=== PATIENT | male | born 1945 | race Two or more races ===

== ENCOUNTER 2021-12-30 19:49 | Emergency (ER) | payer SELFPAY ==
[~2021-12-30] VITALS: Ht 165.1 cm; Wt 61.4 kg
[2021-12-30] MEDS ORDERED: cloNIDine HCL 0.1 MG TAB PO ONE (21:30)
[2021-12-30 22:17] LABS: Basophils # (auto) 0.1 10 ^3/uL (0-0.2); Basophils % (auto) 0.7 % (0.0-2.0); Eosinophils # (auto) 0.1 10 ^3/uL (0-0.8); Lymphocytes # (auto) 0.8 10 ^3/uL (0.4-5.4); Neutrophils # (auto) 6.7 10 ^3/uL (1.6-8.6)
[2021-12-30 22:24] LABS: Eosinophils % (auto) 1.5 % (0.0-7.0); Hematocrit 39.4 % (41.0-53.0); Hemoglobin 13.3 g/dL (13.5-17.5); Lymphocytes % (auto) 9.2 % (10.0-50.0); Mean Corpuscular Hemoglobin 31.2 pg (28.0-32.0); Mean Corpuscular Hgb Conc. 33.8 g/dL (32.0-36.0); Mean Corpuscular Volume 92.3 fL (80.0-100.0); Monocytes # (auto) 0.6 10 ^3/uL (0-1.3); Monocytes % (auto) 7.6 % (0.0-12.0); Red Blood Cells 4.27 10^6/uL (4.5-5.90); Red Cell Distribution Width 13.9 % (11.8-14.3); White Blood Cell 8.2 10^3/uL (4.4-10.8)
[2021-12-30 22:38] LABS: Albumin 3.8 g/dL (3.4-5.0); Calcium 9.1 mg/dL (8.5-10.1); Potassium 3.6 mmol/L (3.5-5.1)
[2021-12-30 22:53] LABS: Bilirubin, Total 0.5 mg/dL (0.2-1.0); CRP High Sensitivity 0.57 mg/dL (< 0.3); Total Protein 7.9 g/dL (6.4-8.2)
[2021-12-31] MEDS ORDERED: VALA1TAB PO (00:43)
[2021-12-31] MEDS ORDERED: CEPH-509 PO (00:43)
[2021-12-31 00:58] VITALS: BP 148/79
== END 2021-12-31 01:04 | disposition left against medical advice (07) ==
LOC: ER 19:49
DX: R29.810 Facial weakness (principal); I10 Essential (primary) hypertension; R21 Rash and other nonspecific skin eruption; R20.2 Paresthesia of skin; L03.211 Cellulitis of face; Z79.899 Other long term (current) drug therapy
CPT/HCPCS: 36415; 70450; 80053; 85025; 86141

== ENCOUNTER 2022-04-04 05:57 | Inpatient (IN) | payer MEDICAID ==
[~2022-04-04] VITALS: Ht 165.1 cm; Wt 61.3 kg
[2022-04-04] VITALS (10 sets, daily range): BP systolic 132–186; BP diastolic 77–100
[~2022-04-04 05:57] MED LIST: CEPH-509 PO; VALA1TAB PO
[2022-04-04] MEDS ORDERED: dilTIAZem 25 MG/5 ML VIAL IV ONE ×2 (06:15→08:00)
[2022-04-04 07:26] LABS: Basophils # (auto) 0 10 ^3/uL (0-0.2); Basophils % (auto) 0.5 % (0.0-2.0); Eosinophils # (auto) 0.1 10 ^3/uL (0-0.8); Eosinophils % (auto) 0.8 % (0.0-7.0); Hemoglobin 13.2 g/dL (13.5-17.5); Lymphocytes # (auto) 0.6 10 ^3/uL (0.4-5.4); Lymphocytes % (auto) 8.6 % (10.0-50.0); Mean Corpuscular Hemoglobin 32.2 pg (28.0-32.0); Mean Corpuscular Hgb Conc. 33.8 g/dL (32.0-36.0); Mean Corpuscular Volume 95.4 fL (80.0-100.0); Monocytes # (auto) 0.5 10 ^3/uL (0-1.3); Monocytes % (auto) 7.2 % (0.0-12.0); Neutrophils # (auto) 6.1 10 ^3/uL (1.6-8.6); Neutrophils % (auto) 82.9 % (37.0-80.0); Nucleated Red Blood Cells % 0.1 %; Red Blood Cells 4.09 10^6/uL (4.5-5.90); Red Cell Distribution Width 14.2 % (11.8-14.3); White Blood Cell 7.3 10^3/uL (4.4-10.8)
[2022-04-04 07:35] LABS: INR 1.1 (0.9-1.15); Partial Thromboplastin Time 26.5 sec (24.6-33.4)
[2022-04-04 07:46] LABS: Albumin 3.5 g/dL (3.4-5.0); BUN/Creatinine Ratio 18.5; Calcium 8.6 mg/dL (8.5-10.1); Potassium 4.1 mmol/L (3.5-5.1)
[2022-04-04 07:49] LABS: Total Protein 6.4 g/dL (6.4-8.2)
[2022-04-04] MEDS ORDERED: NITROGLYCERIN 0.4 MG SL TAB SL PRN (10:45)
[2022-04-04] MEDS ORDERED: MORPHINE SULFATE INJ 2 MG/ml SYRG IV PRN (10:45)
[2022-04-04] MEDS: ENOXAPARIN SOD 60 MG/0.6 ML SYRINGE SC SCH ×2 (11:09→22:31)
[2022-04-04] MEDS ORDERED: ASPirin 81 mg TAB PO ONE (12:30)
[2022-04-04 13:26] LABS: Cholesterol 120 mg/dL (< 200); HDL Cholesterol 36 mg/dL (40-59); LDL Cholesterol 78 mg/dL (< 100); Triglycerides 101 mg/dL (< 150)
[2022-04-04] MEDS ORDERED: DIGOXIN (250MCG/ML) 2 ML AMPULE IV ONE (17:15)
[2022-04-04] MEDS: dilTIAZem 125mg/125ml BAG KIT 125 ML IV SCH (17:28)
[2022-04-04 21:53] LABS: Urine Bacteria NONE SEEN /hpf (None Seen); Urine Blood Negative /uL (Negative); Urine Mucus FEW (None Seen); Urine Specific Gravity 1.023 (1.001-1.035); Urine WBC 1 /hpf (0 - 3)
[2022-04-04] MEDS ORDERED: AMIODARONE HCL 200 MG TAB PO SCH (22:00)
[2022-04-05] VITALS (40 sets, daily range): BP systolic 123–177; BP diastolic 65–104
[2022-04-05] MEDS ORDERED: dilTIAZem 25 MG/5 ML VIAL IV ONE ×2 (00:48→00:49)
[2022-04-05] MEDS: dilTIAZem 125mg/125ml BAG KIT 125 ML IV SCH (01:12)
[2022-04-05] MEDS: DIGOXIN (250MCG/ML) 2 ML AMPULE IV SCH ×2 (01:36→08:11)
[2022-04-05] MEDS ORDERED: LORA-622 PO (05:23)
[2022-04-05] MEDS ORDERED: FLUT0.05 NAS (05:23)
[2022-04-05] MEDS ORDERED: LISI40TA11 PO (05:23)
[2022-04-05] MEDS ORDERED: hydrALAZINE HCL 20 MG/ML VL IV PRN (08:45)
[2022-04-05 09:22] LABS: Basophils # (auto) 0 10 ^3/uL (0-0.2); Basophils % (auto) 0.3 % (0.0-2.0); Eosinophils # (auto) 0 10 ^3/uL (0-0.8); Eosinophils % (auto) 0.5 % (0.0-7.0); Hematocrit 35.7 % (41.0-53.0); Hemoglobin 12.2 g/dL (13.5-17.5); Lymphocytes # (auto) 0.5 10 ^3/uL (0.4-5.4); Lymphocytes % (auto) 5.1 % (10.0-50.0); Mean Corpuscular Hemoglobin 32.8 pg (28.0-32.0); Mean Corpuscular Hgb Conc. 34.3 g/dL (32.0-36.0); Mean Corpuscular Volume 95.5 fL (80.0-100.0); Monocytes # (auto) 0.5 10 ^3/uL (0-1.3); Monocytes % (auto) 5.5 % (0.0-12.0); Neutrophils # (auto) 8.2 10 ^3/uL (1.6-8.6); Neutrophils % (auto) 88.6 % (37.0-80.0); Nucleated Red Blood Cells % 0.2 %; Red Blood Cells 3.74 10^6/uL (4.5-5.90); White Blood Cell 9.3 10^3/uL (4.4-10.8)
[2022-04-05] MEDS: LISINOPRIL 20 MG TAB PO SCH (09:32)
[2022-04-05] MEDS: ASPirin 81 mg TAB PO SCH (09:32)
[2022-04-05] MEDS: dilTIAZem HCL 180MG ER CAP PO SCH (09:33)
[2022-04-05] MEDS: ENOXAPARIN SOD 60 MG/0.6 ML SYRINGE SC SCH (09:33)
[2022-04-05 09:47] LABS: BUN/Creatinine Ratio 18.9; Calcium 8.3 mg/dL (8.5-10.1); Potassium 3.8 mmol/L (3.5-5.1)
[2022-04-05] MEDS ORDERED: METOPROLOL SUCCINATE XL 50 MG TAB PO SCH (10:00)
[2022-04-05] MEDS ORDERED: POTASSIUM CHL 20 Meq TABLET PO ONE (11:30)
[2022-04-05] MEDS ORDERED: FUROSEMIDE 20 MG/2 ML VIAL IV ONE (11:30)
[2022-04-05] MEDS ORDERED: amLODIPine BESYLATE 5 MG TAB PO ONE (14:00)
[2022-04-05] MEDS: FUROSEMIDE 20 MG/2 ML VIAL IV SCH (18:09)
[2022-04-05] MEDS: APIXABAN 5 MG TAB PO SCH (21:31)
[2022-04-06] VITALS: BP 137/75
[2022-04-06 02:43] VITALS: BP 159/87
[2022-04-06 04:42] VITALS: BP 137/88
[2022-04-06] MEDS: FUROSEMIDE 20 MG/2 ML VIAL IV SCH (05:02)
[2022-04-06 06:22] LABS: Basophils # (auto) 0 10 ^3/uL (0-0.2); Basophils % (auto) 0.5 % (0.0-2.0); Eosinophils # (auto) 0.2 10 ^3/uL (0-0.8); Hemoglobin 13.7 g/dL (13.5-17.5); Lymphocytes # (auto) 0.6 10 ^3/uL (0.4-5.4); Mean Corpuscular Hemoglobin 33.4 pg (28.0-32.0); Mean Corpuscular Hgb Conc. 35.1 g/dL (32.0-36.0); Monocytes # (auto) 0.7 10 ^3/uL (0-1.3); Monocytes % (auto) 8.8 % (0.0-12.0); Neutrophils # (auto) 6.4 10 ^3/uL (1.6-8.6); Neutrophils % (auto) 80.7 % (37.0-80.0); Nucleated Red Blood Cells % 0.1 %; Red Cell Distribution Width 14.1 % (11.8-14.3)
[2022-04-06 06:38] LABS: Albumin 3.3 g/dL (3.4-5.0); Calcium 8.4 mg/dL (8.5-10.1); Potassium 3.8 mmol/L (3.5-5.1)
[2022-04-06 06:42] LABS: BUN/Creatinine Ratio 17.1; Bilirubin, Total 0.9 mg/dL (0.2-1.0); Total Protein 6.4 g/dL (6.4-8.2)
[2022-04-06 09:00] VITALS: BP 141/88
[2022-04-06] MEDS: dilTIAZem HCL 180MG ER CAP PO SCH (09:41)
[2022-04-06] MEDS: APIXABAN 5 MG TAB PO SCH (09:41)
[2022-04-06] MEDS: ASPirin 81 mg TAB PO SCH (09:42)
[2022-04-06] MEDS: LISINOPRIL 20 MG TAB PO SCH (09:45)
[2022-04-06] MEDS ORDERED: amLODIPine BESYLATE 5 MG TAB PO SCH (10:00)
[2022-04-06] MEDS ORDERED: AML5T PO ×2 (10:52→10:55)
[2022-04-06] MEDS ORDERED: ASPI-325 PO (10:52)
[2022-04-06] MEDS ORDERED: APIX5TAB PO (10:52)
[2022-04-06] MEDS ORDERED: POTA1TAB64 PO (10:52)
[2022-04-06] MEDS ORDERED: FURO1TAB31 PO (10:52)
[2022-04-06] MEDS ORDERED: NITR0.4S29 SL (10:52)
[2022-04-06] MEDS ORDERED: DILT-102 PO (10:52)
[2022-04-06 11:44] VITALS: BP 141/88
[2022-04-06 13:00] VITALS: BP 138/69
[2022-04-08] MEDS ORDERED: METO25TA36 PO (21:46)
== END 2022-04-06 14:00 | disposition home or self-care (01) | DRG 201 ==
LOC: ER 05:57 → TELE 10:53 → ICU WEST 21:22 → TELE-WESTW 04-06 01:46
PROVIDERS: ADMIT Registered Nurse; ATTEND Internal Medicine
DX: I48.91 Unspecified atrial fibrillation (principal); N17.9 Acute kidney failure, unspecified; E78.5 Hyperlipidemia, unspecified; I48.20 Chronic atrial fibrillation, unspecified; I12.9 Hypertensive chronic kidney disease with stage 1 through stage 4 chronic kidney disease, or unspecified chronic kidney disease; N18.32 Chronic kidney disease, stage 3b; R01.1 Cardiac murmur, unspecified
CPT/HCPCS: 36415; 71045; 71275; 80048; 80053; 80061; 81001; 83036; 83735; 83880; 84443; 84484; 85025; 85379; 85610; 85730; 87081; 87426; 93005; 93306; 96365; 96376; 99291; G0378

== ENCOUNTER 2022-05-02 08:46 | Inpatient (IN) | payer MEDICAID ==
[~2022-05-02] VITALS: Ht 165.1 cm; Wt 59.3 kg
[~2022-05-02 08:46] MED LIST changes: +AML5T PO; +APIX5TAB PO; +ASPI-325 PO; -CEPH-509 PO; +DILT-102 PO; +FLUT0.05 NAS; +FURO1TAB31 PO; +LISI40TA11 PO; +LORA-622 PO; +METO25TA36 PO; +NITR0.4S29 SL; +POTA1TAB64 PO
[2022-05-02] MEDS ORDERED: ASPirin 325 MG TAB PO ONE (09:15)
[2022-05-02 09:20] LABS: Basophils # (auto) 0 10 ^3/uL (0-0.2); Basophils % (auto) 0.5 % (0.0-2.0); Eosinophils # (auto) 0 10 ^3/uL (0-0.8); Hemoglobin 11.7 g/dL (13.5-17.5); Lymphocytes # (auto) 0.2 10 ^3/uL (0.4-5.4); Lymphocytes % (auto) 2.1 % (10.0-50.0); Mean Corpuscular Hemoglobin 31.9 pg (28.0-32.0); Mean Corpuscular Hgb Conc. 33.4 g/dL (32.0-36.0); Mean Corpuscular Volume 95.4 fL (80.0-100.0); Monocytes # (auto) 0.7 10 ^3/uL (0-1.3); Monocytes % (auto) 7.7 % (0.0-12.0); Neutrophils # (auto) 7.9 10 ^3/uL (1.6-8.6); Neutrophils % (auto) 89.7 % (37.0-80.0); Nucleated Red Blood Cells % 0.2 %; Red Blood Cells 3.67 10^6/uL (4.5-5.90); Red Cell Distribution Width 13.9 % (11.8-14.3); White Blood Cell 8.8 10^3/uL (4.4-10.8)
[2022-05-02 09:41] LABS: Albumin 3.6 g/dL (3.4-5.0); BUN/Creatinine Ratio 14.7; Calcium 8.8 mg/dL (8.5-10.1); Potassium 3.9 mmol/L (3.5-5.1)
[2022-05-02 10:13] LABS: Urine Bacteria NONE SEEN /hpf (None Seen); Urine Blood 1+ /uL (Negative); Urine Hyaline Cast FEW /lpf (0 - 2); Urine Specific Gravity 1.012 (1.001-1.035); Urine WBC 2 /hpf (0 - 3)
[2022-05-02] MEDS ORDERED: ENOXAPARIN SOD 60 MG/0.6 ML SYRINGE SC ONE (10:15)
[2022-05-02] MEDS ORDERED: ACETAMINOPHEN 325 MG TAB PO PRN (13:30)
[2022-05-02] MEDS ORDERED: NITROGLYCERIN 0.4 MG SL TAB SL PRN (13:30)
[2022-05-02] MEDS ORDERED: OSELTAMIVIR 75 MG CAP PO ONE (13:30)
[2022-05-02] MEDS ORDERED: HYDROcodone-ACET 5/325MG TAB PO PRN (13:30)
[2022-05-02] MEDS ORDERED: MORPHINE SULFATE INJ 2 MG/ml SYRG IV PRN ×2 (13:30)
[2022-05-02] MEDS ORDERED: MAGNESIUM SULFATE 1GM/100ML 100 ML IV ONE (14:00)
[2022-05-02] MEDS ORDERED: cefTRIAXone 1GM/50ML D5W 50 ML IV ONE (14:00)
[2022-05-02] MEDS ORDERED: AZITHROMYCIN 500MG/ 250ML 250 ML IV ONE (14:00)
[2022-05-02] MEDS: SODIUM CHLORIDE 0.9% 1,000 ML IV SCH (14:16)
[2022-05-02 15:50] LABS: Cholesterol 98 mg/dL (< 200); LDL Cholesterol 50 mg/dL (< 100); Triglycerides 47 mg/dL (< 150)
[2022-05-02 15:51] LABS: HDL Cholesterol 54 mg/dL (40-59)
[2022-05-02] MEDS: ENOXAPARIN SOD 100 MG/1 ML SYRINGE SC SCH (16:40)
[2022-05-02 19:30] LABS: Urine Bacteria NONE SEEN /hpf (None Seen); Urine Blood 1+ /uL (Negative); Urine Hyaline Cast FEW /lpf (0 - 2); Urine Specific Gravity 1.014 (1.001-1.035); Urine WBC 1 /hpf (0 - 3)
[2022-05-02] MEDS: AMIODARONE HCL 200 MG TAB PO SCH (22:26)
[2022-05-03] VITALS (29 sets, daily range): BP systolic 90–139; BP diastolic 54–88
[2022-05-03] MEDS: OSELTAMIVIR 75 MG CAP PO SCH ×3 (00:41→21:26)
[2022-05-03 06:38] LABS: Basophils # (auto) 0 10 ^3/uL (0-0.2); Basophils % (auto) 0.4 % (0.0-2.0); Eosinophils # (auto) 0 10 ^3/uL (0-0.8); Hematocrit 31.3 % (41.0-53.0); Hemoglobin 10.5 g/dL (13.5-17.5); Lymphocytes # (auto) 0.3 10 ^3/uL (0.4-5.4); Lymphocytes % (auto) 4.3 % (10.0-50.0); Mean Corpuscular Hemoglobin 31.9 pg (28.0-32.0); Mean Corpuscular Hgb Conc. 33.5 g/dL (32.0-36.0); Mean Corpuscular Volume 95.1 fL (80.0-100.0); Monocytes # (auto) 0.3 10 ^3/uL (0-1.3); Monocytes % (auto) 5.2 % (0.0-12.0); Neutrophils # (auto) 5.7 10 ^3/uL (1.6-8.6); Neutrophils % (auto) 90.1 % (37.0-80.0); Red Blood Cells 3.29 10^6/uL (4.5-5.90); Red Cell Distribution Width 14.3 % (11.8-14.3); White Blood Cell 6.3 10^3/uL (4.4-10.8)
[2022-05-03 06:47] LABS: Calcium 8.4 mg/dL (8.5-10.1); Potassium 3.8 mmol/L (3.5-5.1)
[2022-05-03 06:52] LABS: BUN/Creatinine Ratio 24.5
[2022-05-03] MEDS: cefTRIAXone 1GM/50ML D5W 50 ML IV SCH (08:55)
[2022-05-03] MEDS ORDERED: LISINOPRIL 20 MG TAB PO SCH (10:00)
[2022-05-03] MEDS ORDERED: amLODIPine BESYLATE 5 MG TAB PO SCH (10:00)
[2022-05-03] MEDS ORDERED: dilTIAZem HCL 180MG ER CAP PO SCH (10:00)
[2022-05-03] MEDS: FUROSEMIDE 40 MG TAB PO SCH (10:26)
[2022-05-03] MEDS: ASPirin-EC 81 mg tab PO SCH (10:26)
[2022-05-03] MEDS: POTASSIUM CHLORIDE 8 MEQ TAB PO SCH (10:28)
[2022-05-03] MEDS: AMIODARONE HCL 200 MG TAB PO SCH ×2 (10:29→22:00)
[2022-05-03] MEDS: AZITHROMYCIN 500MG/ 250ML 250 ML IV SCH (10:30)
[2022-05-03] MEDS: METOPROLOL SUCCINATE XL 50 MG TAB PO SCH (10:32)
[2022-05-03] MEDS: ENOXAPARIN SOD 100 MG/1 ML SYRINGE SC SCH (10:33)
[2022-05-03] MEDS: SODIUM CHLORIDE 0.9% 1,000 ML IV SCH ×2 (16:00→16:25)
[2022-05-03] MEDS: ENOXAPARIN SOD 60 MG/0.6 ML SYRINGE SC SCH (20:27)
[2022-05-04] VITALS (21 sets, daily range): BP systolic 102–153; BP diastolic 41–88
[2022-05-04 05:16] LABS: Basophils # (auto) 0 10 ^3/uL (0-0.2); Basophils % (auto) 0.5 % (0.0-2.0); Eosinophils # (auto) 0 10 ^3/uL (0-0.8); Eosinophils % (auto) 0.1 % (0.0-7.0); Hematocrit 35.7 % (41.0-53.0); Hemoglobin 12.1 g/dL (13.5-17.5); Lymphocytes # (auto) 0.4 10 ^3/uL (0.4-5.4); Lymphocytes % (auto) 6.3 % (10.0-50.0); Mean Corpuscular Hemoglobin 32.2 pg (28.0-32.0); Mean Corpuscular Hgb Conc. 33.9 g/dL (32.0-36.0); Mean Corpuscular Volume 95.1 fL (80.0-100.0); Monocytes # (auto) 0.4 10 ^3/uL (0-1.3); Monocytes % (auto) 5.9 % (0.0-12.0); Neutrophils # (auto) 5.8 10 ^3/uL (1.6-8.6); Neutrophils % (auto) 87.2 % (37.0-80.0); Nucleated Red Blood Cells % 0.1 %; Red Blood Cells 3.76 10^6/uL (4.5-5.90); Red Cell Distribution Width 13.9 % (11.8-14.3); White Blood Cell 6.6 10^3/uL (4.4-10.8)
[2022-05-04] MEDS: LORazepam 0.5 MG TAB PO PRN ×2 (05:16→20:11)
[2022-05-04 05:25] LABS: INR 1.09 (0.9-1.15); Partial Thromboplastin Time 32.9 sec (24.6-33.4)
[2022-05-04 05:35] LABS: Calcium 8.2 mg/dL (8.5-10.1); Potassium 3.7 mmol/L (3.5-5.1)
[2022-05-04 05:37] LABS: BUN/Creatinine Ratio 24.8
[2022-05-04] MEDS: ALBUTEROL SULF 2.5 MG/0.5ML(0.5%) NEB SOLN NEB SCH ×4 (05:55→18:40)
[2022-05-04] MEDS: AZITHROMYCIN 500MG/ 250ML 250 ML IV SCH ×2 (09:29→13:56)
[2022-05-04] MEDS: cefTRIAXone 1GM/50ML D5W 50 ML IV SCH (09:29)
[2022-05-04] MEDS: POTASSIUM CHLORIDE 8 MEQ TAB PO SCH (09:30)
[2022-05-04] MEDS: ASPirin-EC 81 mg tab PO SCH (09:30)
[2022-05-04] MEDS: AMIODARONE HCL 200 MG TAB PO SCH ×2 (09:31→20:12)
[2022-05-04] MEDS: METOPROLOL SUCCINATE XL 50 MG TAB PO SCH (09:31)
[2022-05-04] MEDS: FUROSEMIDE 40 MG TAB PO SCH (09:32)
[2022-05-04] MEDS: ENOXAPARIN SOD 60 MG/0.6 ML SYRINGE SC SCH ×2 (09:33→20:11)
[2022-05-04] MEDS: OSELTAMIVIR 75 MG CAP PO SCH ×2 (09:46→19:26)
[2022-05-04] MEDS ORDERED: fentaNYL CITRATE 100 MCG/2 ML VL ONE (10:46)
[2022-05-04] MEDS ORDERED: ANGIOMAX 250 MG VIAL IV ONE (10:46)
[2022-05-04] MEDS ORDERED: SODIUM CHL 0.9% 0 ML ONE (10:47)
[2022-05-04] MEDS ORDERED: IODIXANOL 320MG/ML 100ML BTL IV ONE ×2 (10:47→11:00)
[2022-05-04] MEDS ORDERED: LIDOCAINE 2%HCL (LOCAL ANESTH.) INJ 20ML MDV ONE (10:47)
[2022-05-04] MEDS ORDERED: MIDAZOLAM HCL 2MG/2ML 2ml VIAL (1mg/ml) ONE (10:47)
[2022-05-04] MEDS ORDERED: DOBUTamine 1000MCG/ML 250 ML IV SCH (12:15)
[2022-05-04] MEDS: DOBUTamine 1000MCG/ML 250 ML IV SCH (14:30)
[2022-05-04] MEDS ORDERED: DIGOXIN (250MCG/ML) 2 ML AMPULE IV ONE (15:00)
[2022-05-04] MEDS ORDERED: guaiFENesin-CODEINE Liq 5 ML UD PO PRN (20:00)
[2022-05-04] MEDS: SODIUM CHLORIDE 0.9% 1,000 ML IV SCH (20:12)
[2022-05-05] VITALS (34 sets, daily range): BP systolic 111–162; BP diastolic 67–93
[2022-05-05] MEDS: ALBUTEROL SULF 2.5 MG/0.5ML(0.5%) NEB SOLN NEB SCH ×4 (00:15→19:27)
[2022-05-05] MEDS: SODIUM CHLORIDE 0.9% 1,000 ML IV SCH ×3 (05:49→21:45)
[2022-05-05] MEDS: OSELTAMIVIR 75 MG CAP PO SCH ×2 (10:00→21:32)
[2022-05-05] MEDS: AZITHROMYCIN 500MG/ 250ML 250 ML IV SCH ×2 (10:00→12:06)
[2022-05-05] MEDS: cefTRIAXone 1GM/50ML D5W 50 ML IV SCH (10:06)
[2022-05-05] MEDS: FUROSEMIDE 40 MG TAB PO SCH (10:07)
[2022-05-05] MEDS: METOPROLOL SUCCINATE XL 50 MG TAB PO SCH (10:07)
[2022-05-05] MEDS: AMIODARONE HCL 200 MG TAB PO SCH ×2 (10:08→21:32)
[2022-05-05] MEDS: ENOXAPARIN SOD 60 MG/0.6 ML SYRINGE SC SCH ×2 (10:09→21:32)
[2022-05-05] MEDS: ASPirin-EC 81 mg tab PO SCH (10:09)
[2022-05-05] MEDS: POTASSIUM CHLORIDE 8 MEQ TAB PO SCH (10:09)
[2022-05-05] MEDS: LORazepam 0.5 MG TAB PO PRN (21:49)
[2022-05-06] VITALS (18 sets, daily range): BP systolic 105–156; BP diastolic 21–110
[2022-05-06] MEDS: ALBUTEROL SULF 2.5 MG/0.5ML(0.5%) NEB SOLN NEB SCH ×4 (00:21→18:33)
[2022-05-06] MEDS: DOBUTamine 1000MCG/ML 250 ML IV SCH ×2 (03:04→10:21)
[2022-05-06] MEDS: cefTRIAXone 1GM/50ML D5W 50 ML IV SCH (08:48)
[2022-05-06] MEDS: OSELTAMIVIR 75 MG CAP PO SCH ×2 (10:00→21:20)
[2022-05-06] MEDS: AZITHROMYCIN 500MG/ 250ML 250 ML IV SCH (10:20)
[2022-05-06] MEDS: ENOXAPARIN SOD 60 MG/0.6 ML SYRINGE SC SCH ×2 (10:21→21:41)
[2022-05-06] MEDS: SODIUM CHLORIDE 0.9% 1,000 ML IV SCH (10:21)
[2022-05-06] MEDS: METOPROLOL SUCCINATE XL 50 MG TAB PO SCH (10:22)
[2022-05-06] MEDS: ASPirin-EC 81 mg tab PO SCH (10:22)
[2022-05-06] MEDS: DIGOXIN 0.125 MG TAB PO SCH (10:22)
[2022-05-06] MEDS: FUROSEMIDE 40 MG TAB PO SCH (10:23)
[2022-05-06] MEDS: POTASSIUM CHLORIDE 8 MEQ TAB PO SCH (10:24)
[2022-05-06] MEDS: AMIODARONE HCL 200 MG TAB PO SCH ×2 (10:24→21:41)
[2022-05-07] MEDS: ALBUTEROL SULF 2.5 MG/0.5ML(0.5%) NEB SOLN NEB SCH ×4 (00:02→19:24)
[2022-05-07] MEDS: SODIUM CHLORIDE 0.9% 1,000 ML IV SCH ×2 (00:03→13:45)
[2022-05-07 05:00] VITALS: BP 144/87
[2022-05-07 05:33] LABS: Albumin 2.5 g/dL (3.4-5.0); Calcium 8.4 mg/dL (8.5-10.1); Potassium 4.2 mmol/L (3.5-5.1)
[2022-05-07 05:37] LABS: BUN/Creatinine Ratio 16.7; Bilirubin, Total 0.7 mg/dL (0.2-1.0); Total Protein 5.6 g/dL (6.4-8.2)
[2022-05-07] MEDS: cefTRIAXone 1GM/50ML D5W 50 ML IV SCH (08:41)
[2022-05-07 09:11] VITALS: BP 144/88
[2022-05-07] MEDS: OSELTAMIVIR 75 MG CAP PO SCH ×2 (10:00→22:00)
[2022-05-07] MEDS: POTASSIUM CHLORIDE 8 MEQ TAB PO SCH (10:14)
[2022-05-07] MEDS: AMIODARONE HCL 200 MG TAB PO SCH ×2 (10:14→22:29)
[2022-05-07] MEDS: ASPirin-EC 81 mg tab PO SCH (10:14)
[2022-05-07] MEDS: DIGOXIN 0.125 MG TAB PO SCH (10:15)
[2022-05-07] MEDS: METOPROLOL SUCCINATE XL 50 MG TAB PO SCH (10:16)
[2022-05-07] MEDS: FUROSEMIDE 40 MG TAB PO SCH (10:16)
[2022-05-07] MEDS: ENOXAPARIN SOD 60 MG/0.6 ML SYRINGE SC SCH ×2 (10:16→22:29)
[2022-05-07 13:00] VITALS: BP 131/71
[2022-05-07] MEDS: DOBUTamine 1000MCG/ML 250 ML IV SCH (14:30)
[2022-05-07 16:33] VITALS: BP 131/71
[2022-05-07 22:00] VITALS: BP 136/76
[2022-05-08] MEDS: ALBUTEROL SULF 2.5 MG/0.5ML(0.5%) NEB SOLN NEB SCH ×3 (00:48→12:14)
[2022-05-08] MEDS: SODIUM CHLORIDE 0.9% 1,000 ML IV SCH (03:05)
[2022-05-08 05:51] VITALS: BP 143/83
[2022-05-08 08:00] VITALS: BP 142/88
[2022-05-08 08:44] VITALS: BP 142/88
[2022-05-08] MEDS: cefTRIAXone 1GM/50ML D5W 50 ML IV SCH (09:44)
[2022-05-08] MEDS: AMIODARONE HCL 200 MG TAB PO SCH (09:44)
[2022-05-08] MEDS: POTASSIUM CHLORIDE 8 MEQ TAB PO SCH (09:44)
[2022-05-08] MEDS: ASPirin-EC 81 mg tab PO SCH (09:44)
[2022-05-08] MEDS: ENOXAPARIN SOD 60 MG/0.6 ML SYRINGE SC SCH (09:45)
[2022-05-08] MEDS: FUROSEMIDE 40 MG TAB PO SCH (09:45)
[2022-05-08] MEDS: OSELTAMIVIR 75 MG CAP PO SCH (09:45)
[2022-05-08] MEDS: DIGOXIN 0.125 MG TAB PO SCH (09:45)
[2022-05-08] MEDS: METOPROLOL SUCCINATE XL 50 MG TAB PO SCH (09:45)
[2022-05-08 10:41] VITALS: BP 142/88
[2022-05-08] MEDS: AZITHROMYCIN 500MG/ 250ML 250 ML IV SCH (12:01)
[2022-05-08 13:48] VITALS: BP 140/75
== END 2022-05-08 14:00 | disposition short-term general hospital (02) | DRG 190 ==
LOC: ER 08:46 → TELE 13:35 → TELE-CENTR 23:23 → DOU IN ICU 05-03 01:33 → TELE-CENTR 05-06 16:34
PROVIDERS: ADMIT Registered Nurse; ATTEND Internal Medicine
PROC: 5A09357 Assistance with Respiratory Ventilation, Less than 24 Consecutive Hours, Continuous Positive Airway Pressure (ICD-10-PCS; 2022-05-03)
PROC: 4A023N8 Measurement of Cardiac Sampling and Pressure, Bilateral, Percutaneous Approach (ICD-10-PCS; principal; 2022-05-04)
PROC: B211YZZ Fluoroscopy of Multiple Coronary Arteries using Other Contrast (ICD-10-PCS; 2022-05-04)
PROC: B215YZZ Fluoroscopy of Left Heart using Other Contrast (ICD-10-PCS; 2022-05-04)
DX: I21.4 Non-ST elevation (NSTEMI) myocardial infarction (principal); J96.01 Acute respiratory failure with hypoxia; J10.00 Influenza due to other identified influenza virus with unspecified type of pneumonia; N17.0 Acute kidney failure with tubular necrosis; I47.20 Ventricular tachycardia, unspecified; I27.20 Pulmonary hypertension, unspecified; I48.91 Unspecified atrial fibrillation; E78.5 Hyperlipidemia, unspecified; I12.9 Hypertensive chronic kidney disease with stage 1 through stage 4 chronic kidney disease, or unspecified chronic kidney disease; I34.0 Nonrheumatic mitral (valve) insufficiency; N18.30 Chronic kidney disease, stage 3 unspecified; F41.9 Anxiety disorder, unspecified; I25.10 Atherosclerotic heart disease of native coronary artery without angina pectoris; Z20.822 Contact with and (suspected) exposure to COVID-19; Z79.01 Long term (current) use of anticoagulants
CPT/HCPCS: 36415; 36600; 71045; 80048; 80053; 80061; 80162; 81001; 82805; 83605; 83735; 83880; 84443; 84484; 85025; 85379; 85610; 85730; 86850; 86900; 86901; 87040; 87081; 87086; 87426; 87804; 93005; 93460; 94640; 94660; 96365; 96366; 96367; 96372; 96375; 99152; 99153; 99291; C1751; G0378; J0696; J2250; Q9967

== ENCOUNTER 2025-03-31 13:06 | Emergency (ER) | payer MEDICAID ==
[~2025-03-31] VITALS: Ht 162.6 cm; Wt 59.6 kg
[~2025-03-31 13:06] MED LIST changes: -LISI40TA11 PO; +LISI40TA16 PO
--- NOTE | 2025-03-31 14:34 | DVH ---
INDICATION: htn TECHNIQUE: Frontal view of the chest. COMPARISON: CXRP on DOS: 05/04/22, CHEST PORTABLE on DOS: 05/04/22, CHEST PORTABLE on DOS: 05/03/22, CXRP on DOS: 05/03/22, CHEST PORTABLE on DOS: 05/02/22 FINDINGS: Median sternotomy. The heart and mediastinal contours are grossly unremarkable. There is no evidence of pleural disease. The lungs are clear. The bony structures of the chest are intact without frac ture. IMPRESSION: 1. No evidence of acute disease.
[2025-03-31 14:40] LABS: Hematocrit 40.4 % (41.0-53.0); Hemoglobin 13.7 g/dL (13.5-17.5); Mean Corpuscular Hemoglobin 31.4 pg (28.0-32.0); Mean Corpuscular Volume 92.5 fL (80.0-100.0); Nucleated Red Blood Cells % 0.0 %
--- NOTE | 2025-03-31 14:53 | ED.PDOC ---
HPI Comments 79 year old male with PMHx HTN, HLD, a-fib presents to the ED with a chief compliant of hypertension onset today (03/31/25). Patient went to see PCP, was told BP was elevated, 198 systolic, advised to come to ED. Patient was given medication, does not know name, came to ED. Upon ED arrival BP was 140/85. Patient states he currently has no complaints. Denies fever, chills, nausea, vomiting, diarrhea, chest pain, shortness of breath, headache, dizziness, numbness/tingling. No other symptoms or modifying factors present at this time. Chief Complaint: High Blood Pressure Time Seen by MD: 14:45 Reviewed Notes: Medications, Allergies Allergies: Coded Allergies: NO KNOWN ALLERGIES (Unverified , 12/30/21) Home Meds Active Scripts Metoprolol Succinate (Toprol Xl) 25 Mg Tab, 1 TAB PO DAILY, #30 TAB 5 Refills Prov:DAI KOCH MD 04/08/22 Amlodipine Besylate (NORVASC TABLET) 5 Mg Tb, 2 TAB PO DAILY, #60 TAB 5 Refills Prov:DAI KOCH MD 04/06/22 Potassium Chloride (K-Tab) 8 Meq Tab, 8 MEQ PO DAILY, #30 TAB Prov:DAI KOCH MD 04/06/22 Furosemide (Lasix) 40 Mg Tab, 40 MG PO DAILY, #30 TAB Prov:DAI KOCH MD 04/06/22 Nitroglycerin (NTROSTAT SUBLINGUAL) 0.4 Mg Sl, 0.4 MG SL Q5MINP PRN, #30 TAB Prov:DAI KOCH MD 04/06/22 Diltiazem HCl (Diltiazem Hydrochloride E) 180 Mg Cap, 180 MG PO DAILY, #30 CAP 3 Refills Prov:DAI KOCH MD 04/06/22 Aspirin (Aspirin Low Dose) 81 Mg Tab, 81 MG PO DAILY, #30 TAB 3 Refills Prov:DAI KOCH MD 04/06/22 Apixaban Base (ELIQUIS) 5 Mg Tab, 5 MG PO BID, #60 TAB Prov:DAI KOCH MD 04/06/22 Valacyclovir Hcl (Valtrex) 1 Gm Tab, 1 TAB PO TID for 7 Days, #21 TAB 5 Refills Prov:ANTON BANEGAS MD 12/31/21 Reported Medications Fluticasone Propionate (Fluticasone Propionate) 0.05 % Cre, 50 MCG AVA for 30 Days, MCG 04/05/22 Lisinopril (Lisinopril) 40 Mg Tab, 40 MG PO DAILY for 30 Days, MG 04/05/22 Loratadine (Claritin) 10 Mg Tab, 1 TAB PO DAILY, #30 TAB 5 Refills 04/05/22 Information Source: Patient, Relative Mode of Arrival: Ambulatory Severity: Moderate Timing: Hours Duration: Since onset Prehospital treatment: None Onset: At Rest Cardiac Risk Factors: Hyperlipidemia, HTN PE Risk Factors: None History of: None Modifying Factors: Nothing Past Medical History PAST MEDICAL HISTORY: AFIB, High Lipids, HTN Surgical History: Denies all surgeries Family History Family History: No family hx of Cancer, No family hx of DM, No family hx of Heart rowan Social History Smoker: Non-Smoker Alcohol: Denies ETOH Use Drugs: Denies Drug Use Lives In: Home Constitutional: denies: chills, diaphoresis, fatigue, fever, malaise, sweats, weakness, others EENTM: denies: blurred vision, double vision, ear bleeding, ear discharge, ear drainage, ear pain, ear ringing, eye pain, eye redness, hearing loss, mouth pain, mouth swelling, nasal discharge, nose bleeding, nose congestion, nose pain, photophobia, tearing, throat pain, throat swelling, voice changes, others Respiratory: denies: cough, hemoptysis, orthopnea, SOB at rest, shortness of breath, SOB with excertion, stridor, wheezing, others Cardiovascular: reports: others (hypertension); denies: chest pain, dizzy spells, diaphoresis, Dyspnea on exertion, edema, irregular heart beat, left arm pain, lightheadedness, palpitations, PND, syncope Gastrointestinal: denies: abdomen distended, abdominal pain, blood streaked bowels, constipated, diarrhea, dysphagia, difficulty swallowing, hematemesis, melena, nausea, poor appetite, poor fluid intake, rectal bleeding, rectal pain, vomiting, others Genitourinary: denies: burning, dysuria, flank pain, frequency, hematuria, incontinence, penile discharge, penile sore, pain, testicle pain, testicle swelling, urgency, others Neurological: denies: dizziness, fainting, headache, left sided numbness, left sided weakness, numbness, paresthesia, pre-existing deficit, right sided num bness, right sided weakness, seizure, speech problems, tingling, tremors, weakness, others Musculoskeletal: denies: back pain, gout, joint pain, joint swelling, muscle pain, muscle stiffness, neck pain, others Integumetry: denies: bruises, change in color, change in hair/nails, dryness, laceration, lesions, lumps, rash, wounds, others Allergic/Immunocompromised: denies: Difficulty Healing, Frequent Infections, Hives, Itching, others Hematologic/Lymphatic: denies: anemia, blood clots, easy bleeding, easy bruising, swollen glands, others Endocrine: denies: excessive hunger, excessive sweating, excessive thirst, excessive urination, flushing, intolerance to cold, intolerance to heat, unexplained weight gain, unexplained weight loss, others Psychiatric: denies: anxiety, bipolar disorder, depression, hopeless, panic disorder, schizophrenia, sleepless, suicidal, others All Other Systems: Reviewed and Negative Physical Exam General Appearance: Normal HEENT: Normal ENT Inspection, Pharynx Normal, TMs Normal Neck: Full Range of Motion, Non-Tender, Normal, Normal Inspection Respiratory: Chest Non-Tender, Lungs Clear, No Accessory Muscle Use, No R espiratory Distress, Normal Breath Sounds Cardiovascular: No Edema, No JVD, No Murmur, No Gallop, Normal Peripheral Pulses, Regular Rate/Rhythm Breast Exam: Deferred Gastrointestinal: No Organomegaly, Non Tender, No Pulsatile Mass, Normal Bowel Sounds, Soft Genitalia: Deferred Pelvic: Deferred Rectal: Deferred Extremities: No calf tenderness, Normal capillary refill, Normal inspection, Normal range of motion, Non-tender, No pedal edema Musculoskeletal : Apperance: Normal Neurologic: Alert, chef de froid II-XII nml as Tested, No Motor Deficits, Normal Affect, Normal Mood, No Sensory Deficits Cerebellar Function: Normal Reflexes: Normal Skin: Dry, Normal Color, Warm Lymphatic: No Adenopathy Was a procedure done? Was a procedure done?: No CP Differential Dx Differential Diagnosis: MN, PAC's Differential Diagnosis: HTN Essential, HTN Accelerated, Medical NonCompliance Differential Diagnosis: Gastritis, Myocardial Infarction, Pericarditis X-Ray, Labs, Meds, VS Vital Signs Date Time Temp Pulse Resp B/P (MAP) Pulse Ox O2 Delivery O2 Flow Rate FiO2 03/31/25 13:08 98.1 68 16 140/85 96 98.1 Lab Test 03/31/25 14:28 Range/Units White Blood Count 6.3 4.4-10.8 10^3/uL Red Blood Count 4.37 L 4.5-5.90 10^6/uL Hemoglobin 13.7 13.5-17.5 g/dL Hematocrit 40.4 L 41.0-53.0 % Mean Corpuscular Volume 92.5 80.0-100.0 fL Mean Corpuscular Hemoglobin 31.4 28.0-32.0 pg Mean Corpuscular Hemoglobin Concent 33.9 32.0-36.0 g/dL Red Cell Distribution Width 14.4 H 11.8-14.3 % Platelet Count 265 140-450 10^3/uL Mean Platelet Volume 6.7 L 6.9-10.8 fL Neutrophils (%) (Auto) 78.7 37.0-80.0 % Lymphocytes (%) (Auto) 9.9 L 10.0-50.0 % Monocytes (%) (Auto) 7.4 0.0-12.0 % Eosinophils (%) (Auto) 3.4 0.0-7.0 % Basophils (%) (Auto) 0.6 0.0-2.0 % Neutrophils # (Auto) 4.9 1.6-8.6 10 ^3/uL Lymphocytes # (Auto) 0.6 0.4-5.4 10 ^3/uL Monocytes # (Auto) 0.5 0-1.3 10 ^3/uL Eosinophils # (Auto) 0.2 0-0.8 10 ^3/uL Basophils # (Auto) 0 0-0.2 10 ^3/uL Nucleated Red Blood Cells 0.0 % Sodium Level 141 136-145 mmol/L Potassium Level 3.9 3.5-5.1 mmol/L Chloride Level 102 98-107 mmol/L Carbon Dioxide Level 28 20-31 mmol/L Anion Gap 11 5-15 Blood Urea Nitrogen 20 9-23 mg/dL Creatinine 1.36 H 0.700-1.30 mg/dL Glomerular Filtration Rate Calc 53 >90 mL/min BUN/Creatinine Ratio 14.7 10.0-20.0 Serum Glucose 150 H 74-106 mg/dL Calcium Level 9.4 8.7-10.4 mg/dL Troponin I High Sensitivity 12 </=54 ng/L [address] [address] Ph: [phone] DIAGNOSTIC IMAGING Diagnostic Imaging Report : [id number] Signed PATIENT: SHANEKA JERRYCCT: [id number] UNIT: [id number] : 1945 LOC: ER ROOM / BED: / AGE / SEX: 79 / M ADM STATUS: REG ER SERVICE 1400 ORDERING PHYSICIAN: SUNI ROWE MD PROCEDURE(s): CXRP - CHEST PORTABLE REASON: htn ORDER NUMBER(s): [id number], ACCESSION NUMBER(s): [id number] INDICATION: htn TECHNIQUE: Frontal view of the chest. COMPARISON: CXRP on DOS: 05/04/22, CHEST PORTABLE on DOS: 05/04/22, CHEST PORTABLE on DOS: 05/03/22, CXRP on DOS: 05/03/22, CHEST PORTABLE on DOS: 05/02/22 FINDINGS: Median sternotomy. The heart and mediastinal contours are grossly unremarkable. There is no evidence of pleural disease. The lungs are clear. The bony structures of the chest are intact without fracture. IMPRESSION: 1. No evidence of acute disease. ATED BY: RANDALL PANDYA MD DICTATED DATE/TIME: 03/31/251431 SIGNED BY: RANDALL PANDYA MD SIGNED DATE/TIME: 03/31/251431 CC: Time of 1ST Reevaluation: 15:15 Reevaluation 1ST: Unchanged Patient Education/Counseling: Diagnosis, Treatment, Prognosis Family Education/Counseling: Diagnosis, Treatment, Prognosis SEPSIS Sepsis Screen Date sepsis recognized/suspect: Mar 31, 2025 Time Sepsis recognized/suspect: 1308 Recent Procedure: No On Antibiotic Therapy: No Respiratory Rate >20: No Heart Rate >90: No Temp<36 C (96.8 F) or >38.3 C: No SBP <90 or MAP <65 mmHG: No New Acute Mental Status Change: No Is the patient on CPAP, BIPAP,: No Physician Orders Chest Portable (03/31/25 14:00) Electrocardigram (03/31/25 14:00) Troponin-I Hs (03/31/25 15:00) Troponin-I Hs (03/31/25 17:00) Electrocardigram (03/31/25 15:00) Electrocardigram (03/31/25 17:00) Vital Signs Date Time Temp Pulse Resp B/P (MAP) Pulse Ox O2 Delivery O2 Flow Rate FiO2 03/31/25 13:08 98.1 68 16 140/85 96 98.1 Laboratory Tests Test 03/31/25 14:28 White Blood Count 6.3 10^3/uL (4.4-10.8) Departure 1 Departure Time of Disposition: 15:26 (Patient's workup is benign. Patient is asymptomatic. We will discharge patient home with outpatient follow up) Impression: Primary Impression: Hypertension Disposition: 01 HOME / SELF CARE / HOMELESS Condition: Stable Additional Instructions: Your workup today was benign. You can take Tylenol or Motrin as needed for pain. You should follow up with your regular doctor within 1 week. You should stay well rested and well hydrated. If your symptoms worsen or you have any other concerns please return to the emergency room. Discharged With: Self Critical Care Note Critical Care Time?: No Stability Stability form required: No Heart Score Heart Score: Heart Score Response (Comments) Value History N/A 0 EKG N/A 0 Age N/A 0 Risk Factors N/A 0 Troponin N/A 0 Total 0 I personally scribed for SUNI ROWE MD ([email or web address]) on 03/31/25 at 14:53. Electronically submitted by Siri Diego ([email or web address]). SUNI ROWE MD Mar 31, 2025 14:53
[2025-03-31 15:01] LABS: Anion Gap 11 (5-15); Calcium 9.4 mg/dL (8.7-10.4); Carbon Dioxide 28 mmol/L (20-31)
[2025-03-31 15:05] LABS: Chloride 102 mmol/L (98-107); Potassium 3.9 mmol/L (3.5-5.1); Sodium 141 mmol/L (136-145)
[2025-03-31 15:06] LABS: BUN/Creatinine Ratio 14.7 (10.0-20.0); Blood Urea Nitrogen 20 mg/dL (9-23); Glucose 150 mg/dL (74-106)
[2025-03-31 15:52] VITALS: BP 133/74; PULSE 65; RESP 16; TEMP 98.3; O2SAT 98
== END 2025-03-31 15:57 | disposition home or self-care (01) ==
LOC: ER 13:06
DX: I10 Essential (primary) hypertension (principal); E78.5 Hyperlipidemia, unspecified; I48.91 Unspecified atrial fibrillation; Z79.899 Other long term (current) drug therapy
CPT/HCPCS: 36415; 71045; 80048; 84484; 85025